=== PATIENT | male | born 1965 | race African-American/Black ===

== ENCOUNTER 2021-01-08 16:44 | Inpatient (IN) | payer OTHER, SELFPAY ==
[2021-01-08] VITALS (10 sets, daily range): BP systolic 117–178; BP diastolic 69–100; PULSE 56–67; RESP 15–24; TEMP 36.6–37.2; O2SAT 97–100; BMI 19.5
--- NOTE | ~2021-01-08 | XR_ITS ---
XR abdomen/kub 1V 01/09/2021 11:39 INDICATION: Severe abdominal pain TECHNIQUE: KUB COMPARISON: CT dated 01/08/2021 FINDINGS: Small bowel is mildly dilated. No free air is identified. There is residual contrast in the bladder. Lung bases are unremarkable. No acute osseous abnormality. No abnormal calculi are seen. The bones appear intact. IMPRESSION: 1: Mildly dilated small bowel which may represent ileus or partial obstruction. Reviewed, dictated and finalized at location A.
--- NOTE | ~2021-01-08 | XR_ITS ---
EXAMINATION: XR abdomen/kub 1V DATE: 01/10/2021 00:49 INDICATION: Small bowel obstruction. TECHNIQUE: A supine view of the abdomen on 2 radiographs was obtained. COMPARISON: CT abdomen and pelvis 01/08/2021, abdomen radiograph 09/14/2020 FINDINGS: There are multiple dilated loops of small bowel. The colon is decompressed. IMPRESSION: 1. Persistent small bowel obstruction. Reviewed, dictated and finalized at location A.
--- NOTE | ~2021-01-08 | XR_ITS ---
EXAMINATION: XR abdomen/kub 1V DATE: 01/11/2021 05:47 INDICATION: Small bowel obstruction. TECHNIQUE: A supine view of the abdomen on 2 radiographs was obtained. COMPARISON: Abdomen radiographs 01/10/2021 FINDINGS: The stomach is distended. There are multiple dilated loops of small bowel. There is oral co ntrast in stomach and small bowel. The colon is decompressed. IMPRESSION: 1. Persistent small bowel obstruction. Reviewed, dictated and finalized at location A.
--- NOTE | ~2021-01-08 | CT_ITS ---
EXAMINATION: CT abdomen pelvis w con DATE: 01/08/2021 20:42 INDICATION: Epigastric abdominal pain. TECHNIQUE: Computed tomography (CT) of the abdomen and pelvis was performed with 100 mL Omnipaque 350 intravenous contrast. Automated exposure control and iterative reconstruction technique were employe d. The dose-length product was 151.13 mGy-cm. COMPARISON: None. FINDINGS: The visualized portions of the lung bases are clear without pneumonia or pleural effusion. The heart size is normal. No pericardial effusion. The liver, gallbladder, spleen, pancreas, adrenal glands, and right kidney are normal. There are cysts in left kidney measuring up to 8 mm. There are m ultiple dilated loops of small bowel with transition point at the midline. The appendix is not visual ized. The colon is decompressed. There is an anastomosis in small bowel. There are no pathologically enlarged lymph nodes. There is a small volume of ascites. There is a subcutaneous radiopaque foreign body in the right buttock. There is moderate lumbar spondylosis. IMPRESSION: 1. Small bowel obstruction. 2. Small volume of ascites. Reviewed, dictated and finalized at location A.
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
[2021-01-08 18:31] LABS: Basophils Percent Auto 0.3 % (0.2-1.2); Hematocrit 46.5 % (42.0-52.0); Hemoglobin 16.1 g/dL (14.0-18.0); Immature Granulocyte Absolute 0.03 K/mm3 (0.00-0.031); Immature Granulocyte Percent A 0.4 % (0-0.5); Lymphocytes Absolute Auto 1.16 K/mm3 (0.9-3.2); Lymphocytes Percent Auto 16.5 % (18.3-44.2); Mean Corpuscular HGB Conc 34.6 g/dl (32-36); Mean Corpuscular Hemoglobin 35.1 pg (26-34); Mean Corpuscular Volume 101.3 fl (80-100); Mean Platelet Volume 8.1 fl (7.4-10.4); Monocytes Absolute Auto 0.5 K/mm3 (0.1-0.6); Monocytes Percent Auto 6.7 % (2.6-8.5); Neutrophils Absolute Auto 5.3 K/mm3 (1.3-6.7); Neutrophils Percent Auto 76.1 % (45.5-73.1); Platelet Count Result 426 k/mm3 (150-375); Red Blood Count 4.59 M/mm3 (4.6-6.20); Red Cell Distribution Width 14.1 % (11.5-14.5)
[2021-01-08 18:41] LABS: Alanine Aminotransferase 15 U/L (4-50); Albumin Level 4.3 g/dL (3.5-5.1); Alkaline Phosphatase 84 U/L (38-126); Anion Gap 11 mmol/L (8-16); Aspartate Amino Transferase 27 U/L (17-59); Bilirubin,Total 0.5 mg/dL (0.2-1.3); Blood Urea Nitrogen 7 mg/dL (9-20); Calcium 9.3 mg/dL (8.4-10.2); Carbon Dioxide 25 mmol/L (22-30); Chloride 101 mmol/L (98-107); Estimated CRCL calculation 91 ml/min; Estimated Glomerular Filt Rate > 60; Glucose 124 mg/dL (65-110); Lipase 31 U/L (23-300); Potassium 3.8 mmol/L (3.4-5.0); Sodium 137 mmol/L (137-145)
--- NOTE | 2021-01-08 19:55 | PC.NURSE ---
Jorge Diaz PA-C, notified of pt's complaints of abdominal pain.
--- NOTE | 2021-01-08 20:10 | PC.NURSE ---
Registration came to charge nurse to notify her that the pt was very rude to her and raising his voice at her. He also made multiple comments about it being a black and white thing, I waited out in that waiting room for over 4 hours. I called 911 and was brought in by an ambulance, that should indicate how sick I am . I should have been taken straight to a room. Pt informed that we have to prioritize based off of how critical/unstable a patient is, and what beds we have available. At that moment we did not have any available beds, and got him into a room as soon as we physically could. Pt continued to make remarks about it being a black vs white situation. Charge notified and pt was in room at the 3 hour jasmyne, and seen by a provider lokesh 20 minutes of being in a room.
[2021-01-08] MEDS: ONDANSETRON INJ 4 MG/2 ML VIAL IV PUSH (20:44)
[2021-01-08] MEDS: MORPHINE SULFATE (*CRX) 2 MG/ML INJ IV PUSH (20:44)
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
[2021-01-08] MEDS: HYDROmorphone HCL INJ (*CRX) 1 MG/ML SYR IV PUSH (22:19)
[2021-01-08] MEDS: SODIUM CHLORIDE 0.9% IV 1,000 ML 125 ML IV CONT (22:19)
--- NOTE | 2021-01-08 22:35 | PC.NURSE ---
Educated on the need for NG tube placement, pt states he has had this before and you ain't gonna do that to me.
[2021-01-08 22:43] LABS: Add Urine Microscopic? YES; Appearance Urine Clear (Clear); Bacteria Urine Trace /hpf; Bilirubin Urine Negative (Negative); Blood Urine Negative (Negative); Color Urine Yellow (Yellow); Glucose Urine UA Negative (Negative); Ketones Urine 1+ mg/dL (Negative); Leukocyte Esterase Ur Trace LEU/UL (Negative); Mucus Urine Heavy /lpf; Nitrate Urine Negative (Negative); Protein Urine 1+ mg/dL (Negative); Squamous Epithelial Cell Urine Rare /hpf (Few); Urobilinogen Urine Negative mg/dL (<2.0)
--- NOTE | 2021-01-08 23:48 | ADMGEN ---
This patient, Nick Hall, was admitted to Medical Room 341-01. Patient/family oriented to hospital policies and general routines including ID bracelet, bed and alarms, visiting hours, pain management, procedures, bathroom and other care routines, personal items, smoking policy, room service/diet, and visiting hours. Information on how to activate the Rapid Response Team has been discussed. Patient/Family are encouraged to report perceived risks to care and to ask questions if they do not understand what they are told or what they should do.
[2021-01-09] VITALS (7 sets, daily range): BP systolic 125–165; BP diastolic 81–97; PULSE 58–86; RESP 16–18; TEMP 36–36.6; O2SAT 96–100; BMI 19.5
[2021-01-09] MEDS: HYDROmorphone HCL INJ (*CRX) 1 MG/ML SYR IV PUSH ×6 (02:17→22:11)
[2021-01-09] MEDS: SODIUM CHLORIDE 0.9% IV 1,000 ML 125 ML IV CONT ×3 (06:34→20:15)
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
[2021-01-09 09:53] LABS: Hematocrit 44.7 % (42.0-52.0); Hemoglobin 15.5 g/dL (14.0-18.0); Mean Corpuscular HGB Conc 34.7 g/dl (32-36); Mean Corpuscular Hemoglobin 35.6 pg (26-34); Mean Corpuscular Volume 102.5 fl (80-100); Mean Platelet Volume 8.3 fl (7.4-10.4); Platelet Count Result 370 k/mm3 (150-375); Red Blood Count 4.36 M/mm3 (4.6-6.20); Red Cell Distribution Width 14.3 % (11.5-14.5)
[2021-01-09 10:06] LABS: Alanine Aminotransferase 12 U/L (4-50); Albumin Level 3.4 g/dL (3.5-5.1); Alkaline Phosphatase 62 U/L (38-126); Anion Gap 8 mmol/L (8-16); Aspartate Amino Transferase 22 U/L (17-59); Bilirubin,Total 0.5 mg/dL (0.2-1.3); Blood Urea Nitrogen 6 mg/dL (9-20); Calcium 8.5 mg/dL (8.4-10.2); Carbon Dioxide 22 mmol/L (22-30); Chloride 105 mmol/L (98-107); Estimated CRCL calculation 70 ml/min; Estimated Glomerular Filt Rate > 60; Glucose 108 mg/dL (65-110); Magnesium 2.2 mg/dL (1.6-2.3); Potassium 3.6 mmol/L (3.4-5.0); Sodium 135 mmol/L (137-145)
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
[2021-01-09] MEDS: ACETAMINOPHEN 500 MG TABLET 1000 MG PO (22:10)
[2021-01-09] MEDS: hydrALAZINE HCL 20 MG/ML VIAL 10 MG IV PUSH (23:13)
[2021-01-10] VITALS (7 sets, daily range): BP systolic 142–180; BP diastolic 89–100; PULSE 70–86; RESP 16–18; TEMP 36.4–36.6; O2SAT 97–100
--- NOTE | 2021-01-10 01:30 | PC.NURSE ---
Around 0030, this RN was called by the patient to come into the room urgently. Upon entering the room the patient was found holding his abdomen. After inquiring what was wrong, the patient stated, I can't do this anymore man, my belly is so tight. It wasn't like this before. Upon my assessment his abdomen felt firm and bowel sounds hypoactive. Patient educated on NG tube placements for small bowel obstructions and the benefits of having one in his situation which would relieve the pressure in his stomach. Patient also educated on slowing down on the water and ice chips as this could be a cause of his increasing abdominal tightness all of a sudden. During and after education, patient kept saying, Nah man, you don't understand. You're just messing with me, and insisting to see a doctor. Dr. Bright was notified of the patient's request and she ordered a STAT KUB and said she would see the patient after the test had resulted. Patient's midnight CIWA score was an 8 and he was noticeably agitated and restless. When going to scan his ID bracelet to administer Ativan, he angrily refused the medication until he spoke to the Collection Specialist. Collection Specialist Juliann notified and came to speak to the patient. After reiterating what I had previously told the patient, he finally calmed down a little and agreed to take the ativan only if Juliann gave it to him because, these youngins don't know what the hell they are talking about. Will continue to monitor.
[2021-01-10] MEDS: LORazepam INJ (*CRX) 2 MG/ML VIAL 1 MG IV PUSH ×3 (01:33→16:52)
[2021-01-10] MEDS: HYDROmorphone HCL INJ (*CRX) 1 MG/ML SYR IV PUSH ×7 (01:55→20:17)
[2021-01-10] MEDS: PROMETHAZINE HCL 25 MG/ML AMPUL 12.5 MG IV PUSH ×2 (04:19→09:01)
[2021-01-10] MEDS: SODIUM CHLORIDE 0.9% IV 1,000 ML 125 ML IV CONT ×2 (04:19→13:39)
[2021-01-10 06:14] LABS: Hematocrit 41.9 % (42.0-52.0); Hemoglobin 14.6 g/dL (14.0-18.0); Mean Corpuscular HGB Conc 34.8 g/dl (32-36); Mean Corpuscular Hemoglobin 34.8 pg (26-34); Mean Corpuscular Volume 99.8 fl (80-100); Mean Platelet Volume 8.2 fl (7.4-10.4); Platelet Count Result 403 k/mm3 (150-375); White Blood Count 7.7 K/mm3 (4.5-10.0)
[2021-01-10 06:28] LABS: Alanine Aminotransferase 11 U/L (4-50); Albumin Level 3.1 g/dL (3.5-5.1); Alkaline Phosphatase 55 U/L (38-126); Anion Gap 8 mmol/L (8-16); Aspartate Amino Transferase 22 U/L (17-59); Bilirubin,Total 0.3 mg/dL (0.2-1.3); Blood Urea Nitrogen 4 mg/dL (9-20); Calcium 8.3 mg/dL (8.4-10.2); Carbon Dioxide 22 mmol/L (22-30); Chloride 104 mmol/L (98-107); Estimated CRCL calculation 79 ml/min; Estimated Glomerular Filt Rate > 60; Glucose 95 mg/dL (65-110); Potassium 3.4 mmol/L (3.4-5.0); Sodium 134 mmol/L (137-145)
--- NOTE | 2021-01-10 11:19 | PM.PNGS ---
Progress Note: A&P Assessment and Plan (1) Small bowel obstruction: Code(s): K56.609 - Unspecified intestinal obstruction, unspecified as to partial versus complete obstruction Status: Acute Assessment and Plan: Abd x-ray this morning still suggests SBO. Will get Gastrografin SBS today to further assess the obstruction. Pt had worsening symptoms after taking in the oral contrast. Will make NPO, continue IV fluids, and await SBS results. Encouraged OOB, walk the halls. (2) ETOH abuse: Code(s): F10.10 - Alcohol abuse, uncomplicated Status: Acute Assessment and Plan: On CIWA scale, Ativan PRN ordered. Management per Hospitalist. Additional Plan I have discussed the plan of care with Dr. Estes. Subjective Subjective Date/Time Seen: 01/10/21 11:19 Patient reports: still having pain, no flatus, no bowel movement and nausea Interval history: 55 yo M who was admitted for SBO, refused NG tube on admission and was allowed clear liquids yesterday. Patient seen and examined today. Gastrografin SBS was ordered this morning prior to my exam. He has already been to radiology, had the oral contrast, and multiple images taken. He is drowsy when entering the room, and per the nurse he has recently received IV Dilaudid, Ativan, and Phenergan. Prior to this, he was alert and awake. The patient is able to respond to his name and open his eyes to answer questions and have a conversation with me. He reports generalized abdominal pain, bloating, and nausea after drinking the contrast. He reports some abdominal pain overnight, but much worse after the contrast. He denies any flatus overnight or this morning. Still no BM since prior to admission. No other complaints at this time. Review of Systems Review of Systems: All systems reviewed & are unremarkable except as noted in HPI and below Exam Const: General: comfortable, no acute distress and other (drowsy) Orientation/consciousness: patient oriented x3 Resp: Effort & Inspection: normal respiratory effort Auscultation: clear to auscultation bilaterally Cardio: Rate: regular rate Rhythm: regular rhythm GI: Inspection: distended and no visible herniation GI Palp: Yes Soft to palpation, Yes Tenderness to palpation present (GI) (diffusely tender throughout), No Guarding due to palpation present (GI) and No Rebound tenderness present Auscultation: normal bowel sounds and High-pitched bowel sounds present Neuro: General: moves all extremities and no focal motor deficits Extrem: General: no clubbing, cyanosis or edema Psych: Mental Status: mental status grossly normal Insight: Good insight present (Psych) Judgement: Fair judgement present (Psych) Objective Data Vital Signs Vital Signs: Vital Signs - 24 hr 01/09/21 14:00 01/09/21 21:48 01/09/21 23:10 Temperature 96.8 F L Pulse Rate 68 58 L Respiratory Rate 18 16 Blood Pressure 145/83 H 159/92 H 165/97 H Pulse Oximetry 100 100 01/10/21 00:09 01/10/21 06:23 Temperature 97.8 F Pulse Rate 71 Respiratory Rate 16 Blood Pressure 156/89 H 142/89 H Pulse Oximetry 97 Intake/Output Intake/Output: Intake & Output 01/07/21 01/08/21 01/09/21 01/10/21 23:59 23:59 23:59 23:59 Intake Total 50 3420 1200 Output Total 300 600 Balance 50 3120 600 Meds/Results Medications: Active Medications Generic Name Dose Route Start Last Admin Trade Name Freq PRN Reason Stop Dose Admin Acetaminophen 1,000 mg 01/09/21 08:56 01/09/21 22:10 Acetaminophen 500 Mg Tablet PO 1,000 mg Q6H PRN Administration Mild Pain (1-3) or Fever Hydromorphone HCl 1 mg 01/08/21 21:51 01/10/21 10:06 Hydromorphone Hcl Inj (*Crx) 1 Mg/Ml Syr IV PUSH 1 mg Q4H PRN Administration Pain Rated 7-10 Sodium Chloride 1,000 mls @ 125 mls/hr 01/08/21 21:55 01/10/21 04:19 Normal Saline Iv IV CONT 125 mls/hr .Q8H [place] Administration Lorazepam 1 mg 01/09/21 02:27 01/10/21 10:07 Lorazepam
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
[2021-01-10] MEDS: hydrALAZINE HCL 20 MG/ML VIAL 10 MG IV PUSH ×2 (14:33→20:17)
--- NOTE | 2021-01-10 16:44 | PC.NURSE ---
Attempted to place NG tube in patient. He would not allow me to advance it beyond his nasal passage. Pt warned of risks if he does not allow NG to be put in, including likely need for exploratory surgery tomorrow. MILES Swift updated. To try again if pt will allow.
[2021-01-10] MEDS: ONDANSETRON INJ 4 MG/2 ML VIAL IV PUSH (20:44)
[2021-01-11] MEDS: HYDROmorphone HCL INJ (*CRX) 1 MG/ML SYR IV PUSH ×8 (00:08→23:57)
[2021-01-11] MEDS: LORazepam INJ (*CRX) 2 MG/ML VIAL 1 MG IV PUSH ×2 (00:11→05:43)
[2021-01-11] MEDS: SODIUM CHLORIDE 0.9% IV 1,000 ML 125 ML IV CONT ×3 (02:11→20:23)
[2021-01-11 05:42] VITALS: BP 158/102; PULSE 100; RESP 17; TEMP 36.4; O2SAT 99
[2021-01-11 05:45] LABS: Hematocrit 43.3 % (42.0-52.0); Hemoglobin 15.4 g/dL (14.0-18.0); Mean Corpuscular HGB Conc 35.6 g/dl (32-36); Mean Corpuscular Hemoglobin 35.7 pg (26-34); Mean Corpuscular Volume 100.5 fl (80-100); Mean Platelet Volume 8.3 fl (7.4-10.4); Platelet Count Result 380 k/mm3 (150-375); Red Blood Count 4.31 M/mm3 (4.6-6.20); Red Cell Distribution Width 13.6 % (11.5-14.5)
[2021-01-11 06:00] LABS: Alanine Aminotransferase 12 U/L (4-50); Albumin Level 3.3 g/dL (3.5-5.1); Alkaline Phosphatase 64 U/L (38-126); Anion Gap 13 mmol/L (8-16); Aspartate Amino Transferase 23 U/L (17-59); Bilirubin,Total 0.6 mg/dL (0.2-1.3); Blood Urea Nitrogen 5 mg/dL (9-20); Carbon Dioxide 20 mmol/L (22-30); Chloride 101 mmol/L (98-107); Estimated CRCL calculation 91 ml/min; Estimated Glomerular Filt Rate > 60; Glucose 99 mg/dL (65-110); Magnesium 2.3 mg/dL (1.6-2.3); Potassium 3.6 mmol/L (3.4-5.0); Sodium 134 mmol/L (137-145)
[2021-01-11] MEDS: PANTOPRAZOLE 40 MG TABLET PO ×2 (09:41→20:23)
[2021-01-11] MEDS: hydrALAZINE HCL 20 MG/ML VIAL 10 MG IV PUSH ×2 (10:39→20:29)
--- NOTE | 2021-01-11 11:36 | PM.PNGS ---
Progress Note: A&P Assessment and Plan (1) Small bowel obstruction: Code(s): K56.609 - Unspecified intestinal obstruction, unspecified as to partial versus complete obstruction Status: Acute Assessment and Plan: images reviewed, still no bowel fxn, pt refusing NG tube, will plan for ex lap tomorrow if no resolution Subjective Subjective Date/Time Seen: 01/11/21 11:36 Pt feels ok, still no bowel fxn. Pt denies any abdominal pain, was somewhat nauseous overnight Review of Systems Review of Systems: All systems reviewed & are unremarkable except as noted in HPI and below Exam Const: General: cooperative, comfortable and no acute distress Orientation/consciousness: patient oriented x3 Resp: Effort & Inspection: normal respiratory effort Auscultation: clear to auscultation bilaterally Cardio: Rate: regular rate Rhythm: regular rhythm GI: Inspection: normal to inspection, distended and incision GI Palp: Yes Soft to palpation, No Tenderness to palpation present (GI), No Guarding due to palpation present (GI) and No Rigid due to palpation Objective Data Vital Signs Vital Signs: Vital Signs - 24 hr 01/10/21 14:20 01/10/21 14:23 01/10/21 15:40 Temperature 36.4 C Pulse Rate 70 Respiratory Rate 18 Blood Pressure 180/100 H 180/100 H 178/95 H Pulse Oximetry 01/10/21 19:23 01/10/21 21:10 01/11/21 05:42 Temperature 36.6 C 36.4 C Pulse Rate 86 100 Respiratory Rate 18 17 Blood Pressure 172/98 H 168/92 H 158/102 H Pulse Oximetry 100 99 Intake/Output Intake/Output: Intake & Output 01/08/21 01/09/21 01/10/21 01/11/21 23:59 23:59 23:59 23:59 Intake Total 50 3420 2200 1000 Output Total 300 975 150 Balance 50 3120 1225 850 Meds/Results Medications: Active Medications Generic Name Dose Route Start Last Admin Trade Name Freq PRN Reason Stop Dose Admin Acetaminophen 1,000 mg 01/09/21 08:56 01/09/21 22:10 Acetaminophen 500 Mg Tablet PO 1,000 mg Q6H PRN Administration Mild Pain (1-3) or Fever Hydralazine HCl 10 mg 01/10/21 14:21 01/11/21 10:39 Hydralazine Hcl 20 Mg/Ml Vial IV PUSH 10 mg Q8H PRN Administration Systolic BP > 160 Hydromorphone HCl 1 mg 01/10/21 13:33 01/11/21 09:50 Hydromorphone Hcl Inj (*Crx) 1 Mg/Ml Syr IV PUSH 1 mg Q2H PRN Administration Pain Rated 7-10 Sodium Chloride 1,000 mls @ 125 mls/hr 01/08/21 21:55 01/11/21 02:11 Normal Saline Iv IV CONT 125 mls/hr .Q8H [facility] Administration Lorazepam 1 mg 01/09/21 02:27 01/11/21 05:43 Lorazepam Inj (*Crx) 2 Mg/Ml Vial IV PUSH 1 mg Q6H PRN Administration Restlessness, Agitation, Tremors Ondansetron HCl 4 mg 01/08/21 21:51 01/10/21 20:44 Ondansetron Inj 4 Mg/2 Ml Vial IV PUSH 4 mg Q4H PRN Administration Nausea Pantoprazole Sodium 40 mg 01/09/21 09:40 01/11/21 09:41 Pantoprazole 40 Mg Tablet PO 40 mg Q12HR [facility] Administration Radiology Results: ITS Impressions Abdomen/Pelvis CT 01/09/21 07:44 IMPRESSION: 1. Small bowel obstruction. 2. Small volume of ascites. Small Bowel X-Ray 01/10/21 15:03 IMPRESSION: 1: Small bowel obstruction. Abdomen X-Ray 01/11/21 06:37 IMPRESSION: 1. Persistent small bowel obstruction. Labs Labs: Laboratory Results - last 24 hr 01/11/21 01/11/21 05:17 05:17 WBC 8.0 RBC 4.31 L Hgb 15.4 Hct 43.3 MCV 100.5 H MCH 35.7 H MCHC 35.6 RDW 13.6 Plt Count 380 H MPV 8.3 Sodium 134 L Potassium 3.6 Chloride 101 Carbon Dioxide 20 L Anion Gap 13 BUN 5 L Creatinine 0.60 L Estim Creat Clear Calc 91 Estimated GFR > 60 Glucose 99 Calcium 9.0 Magnesium 2.3 Total Bilirubin 0.6 AST 23 ALT 12 Alkaline Phosphatase 64 Total Protein 7.0 Albumin 3.3 L Quality VTE Prophylaxis VTE prophylaxis: mechanical ordered
--- NOTE | 2021-01-11 12:16 | WPDANESEPPF ---
Anes - Initial Pre Proc Eval Procedure: Operation Date: 01/12/21 11:00 Proposed Procedures p Exploratory Laparotomy, Possible Bowel Resection - Regine Estes MD Date/Time: 01/11/21 12:16 Surgeon: Regine Estes MD Pre Op Diagnosis: Small Bowel Obstruction Patient Data Age: 55 Gender: M Height: 1.65 m Weight: 53.3 kg Last Vital Signs Temp 36.4 C 01/11/21 05:42 Pulse 100 01/11/21 05:42 Resp 17 01/11/21 05:42 BP 158/102 H 01/11/21 05:42 Pulse Ox 99 01/11/21 05:42 Allergies Allergy/AdvReac Type Severity Reaction Status Date / Time No Known Allergies Allergy Verified 01/08/21 19:55 Home Medications Medication Instructions Recorded Confirmed Type pantoprazole 40 mg PO BID 01/08/21 01/08/21 History Laboratory Tests 01/11/21 01/11/21 05:17 05:17 WBC 8.0 K/mm3 K/mm3 (4.5-10.0) RBC 4.31 M/mm3 L M/mm3 (4.6-6.20) Hgb 15.4 g/dL g/dL (14.0-18.0) Hct 43.3 % % (42.0-52.0) MCV 100.5 fl H fl (80-100) MCH 35.7 pg H pg (26-34) MCHC 35.6 g/dl g/dl (32-36) RDW 13.6 % % (11.5-14.5) Plt Count 380 k/mm3 H k/mm3 (150-375) MPV 8.3 fl fl (7.4-10.4) Sodium 134 mmol/L L mmol/L (137-145) Potassium 3.6 mmol/L mmol/L (3.4-5.0) Chloride 101 mmol/L mmol/L (98-107) Carbon Dioxide 20 mmol/L L mmol/L (22-30) Anion Gap 13 mmol/L mmol/L (8-16) BUN 5 mg/dL L mg/dL (9-20) Creatinine 0.60 mg/dL L mg/dL (0.7-1.3) Estim Creat Clear Calc 91 ml/min ml/min Estimated GFR > 60 (59 - ) Glucose 99 mg/dL mg/dL (65-110) Calcium 9.0 mg/dL mg/dL (8.4-10.2) Magnesium 2.3 mg/dL mg/dL (1.6-2.3) Total Bilirubin 0.6 mg/dL mg/dL (0.2-1.3) AST 23 U/L U/L (17-59) ALT 12 U/L U/L (4-50) Alkaline Phosphatase 64 U/L U/L (38-126) Total Protein 7.0 g/dL g/dL (6.3-8.2) Albumin 3.3 g/dL L g/dL (3.5-5.1) Patient hx anesthesia problems: none Family hx anesthesia problems: none PMFSH Past Medical History Medical History ETOH abuse Small bowel obstruction Smoker Social History Social History Smoking packs per day: 1 Smoking cigarettes per day: 20.0 Years smoked: 30 Smoking pack-years: 30.00 Smoking status: Current every day smoker Tobacco type: cigarettes Alcohol intake: current Drinks per week: 20 Substance use type: marijuana Spiritual care concerns: No Anes - Eval Final PreProcedure Day of Procedure 01/11/21 12:16 Patient weight: normal Heart: regular rate and rhythm Lungs: clear to auscultation and normal air movement Airway: Mallampati scale class II Neurological: alert and oriented Last oral intake: >/= 8 hours ASA classification: III Emergent: no Anesthetic plan: proceed Anesthesia type and monitoring: general ETT Informed Consent: The patient's anesthetic plan and its attendant risks and benefits were discussed with the patient/family/POA. Questions were solicited and answers provided to the satisfaction of the patient/family/POA.
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
[2021-01-11] MEDS: ONDANSETRON INJ 4 MG/2 ML VIAL IV PUSH ×2 (13:15→17:26)
[2021-01-11 14:38] VITALS: BP 163/95; PULSE 106; RESP 20; TEMP 36.9; O2SAT 97
--- NOTE | 2021-01-11 16:22 | PC.NURSE ---
Patient gave permission to speak to his aunt Sarah Aranda about his condition.
[2021-01-11 20:29] VITALS: BP 171/104; PULSE 107; RESP 14; TEMP 36.9; O2SAT 96
[2021-01-11 20:39] VITALS: BP 171/104
[2021-01-11 23:57] VITALS: BP 155/107
[2021-01-12] VITALS (14 sets, daily range): BP systolic 146–187; BP diastolic 90–117; PULSE 78–150; RESP 15–25; TEMP 36.4–37.1; O2SAT 95–100
[2021-01-12] MEDS: ONDANSETRON INJ 4 MG/2 ML VIAL IV PUSH ×2 (00:03→04:42)
[2021-01-12] MEDS: HYDROmorphone HCL INJ (*CRX) 1 MG/ML SYR IV PUSH ×6 (02:36→23:02)
[2021-01-12] MEDS: SODIUM CHLORIDE 0.9% IV 1,000 ML 125 ML IV CONT ×2 (04:43→17:35)
[2021-01-12] MEDS: hydrALAZINE HCL 20 MG/ML VIAL 10 MG IV PUSH (04:46)
[2021-01-12 07:02] LABS: Hematocrit 42.2 % (42.0-52.0); Hemoglobin 14.9 g/dL (14.0-18.0); Mean Corpuscular HGB Conc 35.3 g/dl (32-36); Mean Corpuscular Hemoglobin 35.2 pg (26-34); Mean Corpuscular Volume 99.8 fl (80-100); Mean Platelet Volume 8.6 fl (7.4-10.4); Platelet Count Result 367 k/mm3 (150-375); Red Blood Count 4.23 M/mm3 (4.6-6.20); Red Cell Distribution Width 14.4 % (11.5-14.5); White Blood Count 10.4 K/mm3 (4.5-10.0)
[2021-01-12 07:18] LABS: Alanine Aminotransferase 10 U/L (4-50); Albumin Level 3.9 g/dL (3.5-5.1); Alkaline Phosphatase 65 U/L (38-126); Anion Gap 14 mmol/L (8-16); Aspartate Amino Transferase 28 U/L (17-59); Bilirubin,Total 0.5 mg/dL (0.2-1.3); Blood Urea Nitrogen 8 mg/dL (9-20); Calcium 9.2 mg/dL (8.4-10.2); Carbon Dioxide 19 mmol/L (22-30); Chloride 103 mmol/L (98-107); Estimated CRCL calculation 70 ml/min; Estimated Glomerular Filt Rate > 60; Glucose 88 mg/dL (65-110); Magnesium 2.2 mg/dL (1.6-2.3); Potassium 3.7 mmol/L (3.4-5.0); Sodium 136 mmol/L (137-145)
--- NOTE | 2021-01-12 09:45 | PC.NURSE ---
Patient taken to the or.
[2021-01-12] MEDS: LACTATED RINGERS 1,000 ML 30 ML IV CONT ×2 (10:06→12:15)
--- NOTE | 2021-01-12 10:07 | SUR.PREOP ---
DR KAUFMAN AT BEDSIDE SPEAKING TO PT. PT C/O PAIN. ASKING FOR PAIN MEDICINE. PT C/O UNABLE TO TAKE A DEEP BREATH DUE TO PAIN. DR KAUFMAN ORDERING FENTANYL FOR PREOP
--- NOTE | 2021-01-12 10:20 | WPDANESPNB ---
Anes - Peripheral Nerve Block Date/Time: 01/12/21 10:20 I have discussed with the patient/family/POA the placement of a peripheral nerve block for post-operative pain management, including associated risks, benefits, complications, and side effects. Alternative methods of post-operative analgesia were detailed. Questions were solicited and answers provided to the satisfaction of the patient/family/POA. Time-Out: A pre-procedural Time-Out was completed immediately before starting the procedure and confirmed: Patient Identification, Site, Procedure, Patient Position and the Availability of Requisite Equipment. Clinical Indications: Acute post-operative pain management requested by the operative surgeon. Nerve Block Insertion Note Anes-nerve block: other (b/l t7 diana block) Patient position: other (sitting) Skin prep: chlorhexidine Needle: 22 gauge, stimulating, insulated echogenic needle. Needle length: 80 mm Technique: ultrasound (in plane) Technique comment: in plane Injectate: bupivacaine 0.25% with epi 5 mcg/ml (40cc - 20cc/side) Observations: tolerated well Complications: none Procedure start time:: 111 Procedure end time:: 1114
[2021-01-12] MEDS: fentaNYL CITRATE INJ (*CRX) 100 MCG/2 ML VIAL 50 MCG IV PUSH (10:21)
--- NOTE | 2021-01-12 10:40 | SUR.PREOP ---
1020; late note, PULSE OXIMETER PLACED ON PT CONTINUOUSLY DUE TO FENTANYL GIVEN IV. 1040; PT RESTING QUIETLY. RESP EVEN UNLABORED. SAO2 98-100% ON ROOM AIR. CALL LIGHT IN REACH
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
--- NOTE | 2021-01-12 10:45 | SUR.PREOP ---
CALLED DR DIAZ'S OFFICE, REGARDING ANTIBX TRIMMER HAND TO OR
--- NOTE | 2021-01-12 10:55 | WPDHPUPDATE1 ---
History and Physical Update Update Date/Time: 01/12/21 10:55 History and Physical has been reviewed, including an updated exam of the patient. There are NO changes in the patient's condition. Risks, benefits, and alternatives have been discussed and questions answered. Patient agrees to proceed with procedure.
[2021-01-12] MEDS: ceFAZolin 2 GM/D5W 50 ML 2 GM/50 ML BAG IVPB (11:22)
--- NOTE | 2021-01-12 12:20 | W.PM.PROC2 ---
Procedure Note - Detailed Date of Procedure 01/12/21 Pre-op Diagnosis Small Bowel Obstruction Post-op Diagnosis same Procedure Performed exploratory laparotomy with lysis of adhesions of approximately 15 minutes Surgeon Regine Estes MD Anesthesia general and spinal Indications 55-year-old male presenting with recurrent small-bowel obstruction, no improvement with conservative management Findings adhesive band in right lower quadrant near mid ileum causing complete bowel obstruction Description of Procedure The patient was taken to the operating and placed in the supine position. After adequate induction of general anesthesia, the patient was prepped and draped in the normal sterile fashion. A time-out was then done to verify the patient's identity, as well as procedure being performed. I began by making a midline incision just to the right of the umbilicus. This incision was taken down to the peritoneal cavity. Upon entering the peritoneum, there was noted to be a moderate amount of ascites. I was then able to note very dilated small intestine. There were some adhesions to the anterior abdominal wall that were taken down with the Bovie cautery. I then began to run the small intestine. Small intestine was noted to be dilated from the ligament of Treitz to an area in the right lower quadrant at the level of the mid ileum. There was noted to be a dense adhesion in this area and it was noted that the distal small intestine was completely decompressed. I then did examine the colon which was noted to be decompressed and unremarkable. At this point, I took down this adhesive band in the mid ileum. Upon releasing this band, I was able to extracorporealyze this entire area. Examination of this area was unremarkable and the bowel was noted to be viable. Fluid was noted to freely flow distally at this point. I then ran the entirety of the small bowel once again and noted it to be unremarkable. I then confirmed placement of the NG tube in the stomach. Then copiously washed out the abdomen with normal saline. The fascia was then closed with looped PDS suture. Skin was closed with skin milena. The patient tolerated the procedure well and was extubated in the operating room postop. He will be sent to the recovery room in stable condition. Estimated Blood Loss 5 Urine Output 250 Drains No Packing No Pathology none sent Complications No immediate complications Condition stable Disposition PACU
--- NOTE | 2021-01-12 13:03 | SUR.PHASEI ---
1302-UPDATE GIVEN TO DR. KAUFMAN WITH VS REPORTED, OKAY FOR PT TO RETURN TO FLOOR AT THIS TIME.
--- NOTE | 2021-01-12 13:10 | PCNFU ---
Nutrition Follow-Up Complete: Altered GI function as related to SBO as evidenced by Clear liquids Goal: Adequate Intake of at least 75% of meals/supplements Patient has limited progressing towards goal. We will continue current goal. Pt current nutrition is NPO x 4 days. Last recorded weight is 53.3 kg, no new weight to report. Bowel Motility:No BMI reported. Labs Reviewed:BUN 8,Na 136 Meds Noted:Zofran,Dilaudid,LR, NS Additional Notes: Patient having exploratory lap today. NPO x 4 days. If patient remains NPO greater than 5 days would recommend starting IV nutrition. Skin: WNL. Monitoring: RD will monitor every 3 days.
[2021-01-12] MEDS: ENALAPRILAT 1.25 MG/ML VIAL IV PUSH (14:12)
[2021-01-12] MEDS: PANTOPRAZOLE SODIUM IV 40 MG VIAL IV PUSH (20:37)
[2021-01-13] VITALS (11 sets, daily range): BP systolic 141–173; BP diastolic 80–109; PULSE 79–96; RESP 12–18; TEMP 36.7–37.8; O2SAT 93–97
[2021-01-13] MEDS: LORazepam INJ (*CRX) 2 MG/ML VIAL 1 MG IV PUSH (00:57)
[2021-01-13] MEDS: ENALAPRILAT 1.25 MG/ML VIAL IV PUSH ×2 (00:58→18:44)
--- NOTE | 2021-01-13 01:10 | PC.NURSE ---
pt express concerns of ng placement. he states that it feels like there are two of them. I can feel it when I swallow. The oropharynx was visualized, with light, to have no curling or displacement of tubing. GI fluid noted in extent of tubing. NG remains taped off in original location to the nose. Patient reassured of proper placement. Will continue to monitor.
[2021-01-13] MEDS: SODIUM CHLORIDE 0.9% IV 1,000 ML 125 ML IV CONT (02:30)
[2021-01-13 05:59] LABS: Hemoglobin 13.3 g/dL (14.0-18.0); Mean Corpuscular Hemoglobin 36.2 pg (26-34); Mean Corpuscular Volume 103.5 fl (80-100); Mean Platelet Volume 8.8 fl (7.4-10.4); Platelet Count Result 249 k/mm3 (150-375); Red Blood Count 3.67 M/mm3 (4.6-6.20); Red Cell Distribution Width 14.4 % (11.5-14.5)
[2021-01-13 06:16] LABS: Alanine Aminotransferase 7 U/L (4-50); Alkaline Phosphatase 44 U/L (38-126); Anion Gap 9 mmol/L (8-16); Aspartate Amino Transferase 26 U/L (17-59); Bilirubin,Total 0.5 mg/dL (0.2-1.3); Blood Urea Nitrogen 8 mg/dL (9-20); Calcium 8.4 mg/dL (8.4-10.2); Carbon Dioxide 21 mmol/L (22-30); Chloride 104 mmol/L (98-107); Estimated CRCL calculation 79 ml/min; Estimated Glomerular Filt Rate > 60; Glucose 83 mg/dL (65-110); Magnesium 2.3 mg/dL (1.6-2.3); Potassium 3.8 mmol/L (3.4-5.0); Sodium 134 mmol/L (137-145)
[2021-01-13] MEDS: HYDROmorphone HCL INJ (*CRX) 1 MG/ML SYR IV PUSH ×5 (08:50→21:06)
[2021-01-13] MEDS: PANTOPRAZOLE SODIUM IV 40 MG VIAL IV PUSH ×2 (08:50→21:06)
--- NOTE | 2021-01-13 12:09 | PCNFU ---
Nutrition Follow-Up Complete: Altered GI function as related to SBO as evidenced by Clear liquids Goal: Adequate Intake of at least 75% of meals/supplements Patient has limited progress towards goal. We will continue current goal. Pt current nutrition is NPO. Last recorded weight is 53.3 kg, no new weight to report. Bowel Motility:No BM to reported-distended, hypoactive bowel sounds. Labs Reviewed:BUN 8,Na 134,Alb 3.0,Hct 38.0,Hgb 13.3 Meds Noted:Ativan,Protonix, Dilaudid,Ofirmev. Additional Notes: Nutrition follow up. Patient remains NPO x 5 days. NGT to suction. Patient had exp lap 01/12. Increased nutritional risk. Recommend starting Clinimix 4.25/5 at 80 ml/hr and 250 ml of 20% Lipid Emulsion which will provide patient with 1153 kcals and 82 gms protein. Monitoring: RD will monitor every 3 days.
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
[2021-01-13] MEDS: ENOXAPARIN 40 MG/0.4 ML SYRINGE SUB-Q (13:18)
--- NOTE | 2021-01-13 13:46 | WPDANESPN ---
Anes - Prog Note Post-Op Date/Time: 01/13/21 13:46 Cardiovascular status: normal Respiratory status: normal Airway patency: baseline Mental status: baseline Post-Op hydration status: normal Vital Signs: Last Vital Signs Temp 36.9 C 01/13/21 13:03 Pulse 79 01/13/21 13:03 Resp 16 01/13/21 13:03 BP 162/94 H 01/13/21 13:03 Pulse Ox 95 01/13/21 13:03 Pain Score (VAS): no complaints I/O: Intake & Output 01/12/21 01/13/21 01/13/21 23:59 07:59 15:59 Intake Total 100 1350 Output Total 450 300 Balance -350 1050 Laboratory Tests 01/13/21 05:19 01/13/21 05:19 01/13/21 01/13/21 05:19 05:19 WBC 6.0 RBC 3.67 L Hgb 13.3 L Hct 38.0 L MCV 103.5 H MCH 36.2 H MCHC 35.0 RDW 14.4 Plt Count 249 MPV 8.8 Sodium 134 L Potassium 3.8 Chloride 104 Carbon Dioxide 21 L Anion Gap 9 BUN 8 L Creatinine 0.70 Estim Creat Clear Calc 79 Estimated GFR > 60 Glucose 83 Calcium 8.4 Magnesium 2.3 Total Bilirubin 0.5 AST 26 ALT 7 Alkaline Phosphatase 44 Total Protein 6.0 L Albumin 3.0 L Post-procedural complaints: none Patient Feedback: Patient satisfied with anesthetic care. Other Findings: NG to SX
[2021-01-13] MEDS: KCL 40 MEQ/D5/0.9% SOD CHL 1,000 ML 80 ML IV CONT (16:18)
[2021-01-13] MEDS: BENZOCAINE/MENTHOL (*BKC) 18 EA LOZENGE 1 LOZENGE PO (16:24)
[2021-01-14] VITALS (8 sets, daily range): BP systolic 150–180; BP diastolic 88–110; PULSE 76–95; RESP 14–16; TEMP 36.6–37.1; O2SAT 94–99
[2021-01-14] MEDS: BENZOCAINE/MENTHOL (*BKC) 18 EA LOZENGE 1 LOZENGE PO ×3 (01:34→17:41)
[2021-01-14] MEDS: HYDROmorphone HCL INJ (*CRX) 1 MG/ML SYR IV PUSH ×5 (03:07→20:27)
[2021-01-14] MEDS: KCL 40 MEQ/D5/0.9% SOD CHL 1,000 ML 80 ML IV CONT (05:36)
[2021-01-14 06:01] LABS: Hematocrit 35.7 % (42.0-52.0); Hemoglobin 12.9 g/dL (14.0-18.0); Mean Corpuscular HGB Conc 36.1 g/dl (32-36); Mean Corpuscular Hemoglobin 35.4 pg (26-34); Mean Corpuscular Volume 98.1 fl (80-100); Mean Platelet Volume 8.8 fl (7.4-10.4); Platelet Count Result 283 k/mm3 (150-375); Red Blood Count 3.64 M/mm3 (4.6-6.20); Red Cell Distribution Width 13.5 % (11.5-14.5); White Blood Count 6.5 K/mm3 (4.5-10.0)
[2021-01-14 06:12] LABS: Alanine Aminotransferase 9 U/L (4-50); Albumin Level 2.9 g/dL (3.5-5.1); Alkaline Phosphatase 47 U/L (38-126); Anion Gap 6 mmol/L (8-16); Aspartate Amino Transferase 23 U/L (17-59); Bilirubin,Total 0.4 mg/dL (0.2-1.3); Blood Urea Nitrogen 9 mg/dL (9-20); Calcium 8.3 mg/dL (8.4-10.2); Carbon Dioxide 24 mmol/L (22-30); Chloride 105 mmol/L (98-107); Estimated CRCL calculation 79 ml/min; Estimated Glomerular Filt Rate > 60; Glucose 98 mg/dL (65-110); Potassium 3.5 mmol/L (3.4-5.0); Sodium 135 mmol/L (137-145)
[2021-01-14] MEDS: ONDANSETRON INJ 4 MG/2 ML VIAL IV PUSH (07:49)
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
[2021-01-14] MEDS: ENOXAPARIN 40 MG/0.4 ML SYRINGE SUB-Q (09:59)
[2021-01-14] MEDS: PANTOPRAZOLE SODIUM IV 40 MG VIAL IV PUSH ×2 (09:59→20:26)
[2021-01-14] MEDS: ENALAPRILAT 1.25 MG/ML VIAL IV PUSH (12:41)
--- NOTE | 2021-01-14 13:47 | PM.PNGS ---
Progress Note: A&P Assessment and Plan (1) Small bowel obstruction: Code(s): K56.609 - Unspecified intestinal obstruction, unspecified as to partial versus complete obstruction Status: Acute Assessment and Plan: expected postoperative ileus. Await return of bowel function. Continue NG tube, NPO, IV fluids. Continue to monitor labs daily as well as clinical exam. Doing well. Explained to patient it could be several days before NG tube can be removed and oral intake resumed. (2) Smoker: Code(s): F17.200 - Nicotine dependence, unspecified, uncomplicated Status: Chronic Assessment and Plan: Increases postoperative infection risks. Subjective Subjective Date/Time Seen: 01/14/21 13:47 Post Op day: 2 Patient reports: no new complaints, feels better, pain is less, no flatus, no bowel movement and afebrile Review of Systems Review of Systems: All systems reviewed & are unremarkable except as noted in HPI and below Constitutional: Constitutional: Denies headache(s) Cardiovascular: Cardiovascular: Denies chest pain and Denies dyspnea Respiratory: Respiratory: Denies cough and Denies dyspnea Gastrointestinal: Gastrointestinal: Reports as per HPI, Reports abdominal pain ( Mild), Denies heartburn, Denies nausea and Denies vomiting Neurologic: Denies confusion and Denies headache(s) Exam Const: General: comfortable and no acute distress; No confusion Orientation/consciousness: patient oriented x3 and No confusion GI: Inspection: non-distended, incision ( dry and healing well) and scaphoid GI Palp: Yes Soft to palpation, Yes Tenderness to palpation present (GI) ( slight, appropriate incisional tenderness), No Guarding due to palpation present (GI), No Palpable mass present and No Rebound tenderness present Auscultation: absent bowel sounds Neuro: General: patient oriented x3, no focal motor deficits and No confusion Extrem: General: no calf tenderness and no edema Psych: Affect: normal affect Insight: Good insight present (Psych) Judgement: Good judgement present (Psych) Objective Data Vital Signs Vital Signs: Vital Signs - 24 hr 01/13/21 14:16 01/13/21 14:54 01/13/21 16:00 Temperature 37.8 C H 37.3 C Pulse Rate 82 Pulse Rate [Left Brachial] 90 Respiratory Rate 16 Blood Pressure 173/103 H Pulse Oximetry 95 01/13/21 18:41 01/13/21 20:00 01/13/21 21:06 Temperature 36.7 C Pulse Rate 89 Pulse Rate [Left Brachial] 90 Respiratory Rate 12 Blood Pressure 172/96 H 159/96 H Pulse Oximetry 94 01/14/21 00:05 01/14/21 00:17 01/14/21 04:27 Temperature 36.6 C 36.6 C Pulse Rate 91 91 Pulse Rate [Left Brachial] 86 Respiratory Rate 14 14 Blood Pressure 160/91 H 160/91 H Pulse Oximetry 95 95 01/14/21 05:59 01/14/21 12:42 Temperature 36.8 C Pulse Rate 95 82 Pulse Rate [Left Brachial] Respiratory Rate 14 Blood Pressure 162/88 H 180/110 H Pulse Oximetry 95 Intake/Output Intake/Output: Intake & Output 01/11/21 01/12/21 01/13/21 01/14/21 23:59 23:59 23:59 23:59 Intake Total 3000 2300 1350 1000 Output Total 600 1170 1350 400 Balance 2400 1130 0 600 Meds/Results Medications: Active Medications Generic Name Dose Route Start Last Admin Trade Name Freq PRN Reason Stop Dose Admin Benzocaine 1 lozenge 01/13/21 11:52 01/14/21 07:53 Benzocaine/Menthol (*Bkc) 18 Ea Lozenge PO 1 lozenge PRN PRN Administration Sore Throat Enalaprilat 1.25 mg 01/12/21 12:00 01/14/21 12:41 Enalaprilat 1.25 Mg/Ml Vial IV PUSH 1.25 mg Q6HR [facility] Administration Enoxaparin Sodium 40 mg 01/14/21 09:00 01/14/21 09:59 Enoxaparin 40 Mg/0.4 Ml Syringe SUB-Q 40 mg DAILY [facility] Administration Hydralazine HCl 10 mg 01/10/21 14:21 01/11/21 20:29 Hydralazine Hcl 20 Mg/Ml Vial IV PUSH 10 mg Q8H PRN Administration Systolic BP > 160 Hydromorphone HCl 1 mg 01/10/21 13:33 01/14/21 12:39 Hydromorphone Hcl I
[2021-01-14] MEDS: KCL 40 MEQ/D5/0.9% SOD CHL 1,000 ML 125 ML IV CONT (20:33)
[2021-01-15] VITALS (11 sets, daily range): BP systolic 146–181; BP diastolic 80–99; PULSE 70–87; RESP 16–20; TEMP 35.6–37.3; O2SAT 96–99
[2021-01-15] MEDS: HYDROmorphone HCL INJ (*CRX) 1 MG/ML SYR IV PUSH ×2 (01:22→09:33)
[2021-01-15] MEDS: BENZOCAINE/MENTHOL (*BKC) 18 EA LOZENGE 1 LOZENGE PO (01:23)
[2021-01-15 05:57] LABS: Hematocrit 34.9 % (42.0-52.0); Hemoglobin 12.6 g/dL (14.0-18.0); Mean Corpuscular HGB Conc 36.1 g/dl (32-36); Mean Corpuscular Hemoglobin 35.1 pg (26-34); Mean Corpuscular Volume 97.2 fl (80-100); Mean Platelet Volume 8.8 fl (7.4-10.4); Platelet Count Result 265 k/mm3 (150-375); Red Blood Count 3.59 M/mm3 (4.6-6.20); Red Cell Distribution Width 13.3 % (11.5-14.5); White Blood Count 4.5 K/mm3 (4.5-10.0)
[2021-01-15 06:13] LABS: Alanine Aminotransferase 8 U/L (4-50); Albumin Level 2.7 g/dL (3.5-5.1); Alkaline Phosphatase 48 U/L (38-126); Anion Gap 5 mmol/L (8-16); Aspartate Amino Transferase 22 U/L (17-59); Bilirubin,Total 0.2 mg/dL (0.2-1.3); Blood Urea Nitrogen 5 mg/dL (9-20); Calcium 8.5 mg/dL (8.4-10.2); Carbon Dioxide 25 mmol/L (22-30); Chloride 106 mmol/L (98-107); Estimated CRCL calculation 91 ml/min; Estimated Glomerular Filt Rate > 60; Glucose 111 mg/dL (65-110); Potassium 3.8 mmol/L (3.4-5.0); Sodium 136 mmol/L (137-145)
[2021-01-15] MEDS: ENOXAPARIN 40 MG/0.4 ML SYRINGE SUB-Q (08:21)
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
--- NOTE | 2021-01-15 11:12 | PM.PNGS ---
Progress Note: A&P Assessment and Plan (1) Small bowel obstruction: Code(s): K56.609 - Unspecified intestinal obstruction, unspecified as to partial versus complete obstruction Status: Acute Assessment and Plan: Bowel function returning. Will DC NG tube and Fox catheter. Start full liquids. Increase ambulation. Discussed with hospitalist. Patient is doing well. Subjective Subjective Date/Time Seen: 01/15/21 11:12 Post Op day: 3 Patient reports: feels better, pain is less, flatus, bowel movement and afebrile Review of Systems Review of Systems: All systems reviewed & are unremarkable except as noted in HPI and below Constitutional: Constitutional: Denies headache(s) Respiratory: Respiratory: Denies cough and Denies dyspnea Neurologic: Denies confusion and Denies headache(s) Exam Const: General: comfortable and no acute distress; No confusion Orientation/consciousness: patient oriented x3 and No confusion GI: Inspection: non-distended, incision (Incision dry, intact, healing. No erythema) and scaphoid GI Palp: Yes Soft to palpation, Yes Tenderness to palpation present (GI) (Minimal tenderness), No Guarding due to palpation present (GI) and No Rebound tenderness present Auscultation: normal bowel sounds Neuro: General: patient oriented x3, no focal motor deficits and No confusion Extrem: General: no calf tenderness and no edema Psych: Affect: normal affect Insight: Good insight present (Psych) Judgement: Good judgement present (Psych) Objective Data Vital Signs Vital Signs: Vital Signs - 24 hr 01/14/21 12:42 01/14/21 14:00 01/14/21 20:00 Temperature 37.1 C Pulse Rate 82 80 Pulse Rate [Left Brachial] 78 Respiratory Rate Blood Pressure 180/110 H 156/89 H Pulse Oximetry 99 01/14/21 20:39 01/15/21 00:00 01/15/21 00:38 Temperature 36.8 C 36.6 C Pulse Rate 76 73 Pulse Rate [Left Brachial] 74 Respiratory Rate 16 16 Blood Pressure 150/90 H 160/87 H Pulse Oximetry 94 96 01/15/21 04:22 01/15/21 06:00 01/15/21 08:00 Temperature 36.4 C Pulse Rate 76 Pulse Rate [Left Brachial] 72 72 Respiratory Rate 18 Blood Pressure 146/90 H Pulse Oximetry 97 Intake/Output Intake/Output: Intake & Output 01/12/21 01/13/21 01/14/21 01/15/21 23:59 23:59 23:59 23:59 Intake Total 2300 1350 2000 Output Total 1170 1350 900 800 Balance 1130 0 1100 -800 Meds/Results Medications: Active Medications Generic Name Dose Route Start Last Admin Trade Name Freq PRN Reason Stop Dose Admin Benzocaine 1 lozenge 01/13/21 11:52 01/15/21 01:23 Benzocaine/Menthol (*Bkc) 18 Ea Lozenge PO 1 lozenge PRN PRN Administration Sore Throat Enalaprilat 1.25 mg 01/12/21 12:00 01/15/21 08:24 Enalaprilat 1.25 Mg/Ml Vial IV PUSH Not Given Q6HR [facility] Enoxaparin Sodium 40 mg 01/14/21 09:00 01/15/21 08:21 Enoxaparin 40 Mg/0.4 Ml Syringe SUB-Q 40 mg DAILY [facility] Administration Hydralazine HCl 10 mg 01/10/21 14:21 01/11/21 20:29 Hydralazine Hcl 20 Mg/Ml Vial IV PUSH 10 mg Q8H PRN Administration Systolic BP > 160 Potassium Chloride/Dextrose/Sod Cl 1,000 mls @ 80 mls/hr 01/13/21 13:00 01/15/21 08:24 Kcl 40 Meq/D5ns IV CONT Not Given .[id number] [facility] Lorazepam 1 mg 01/09/21 02:27 01/13/21 00:57 Lorazepam Inj (*Crx) 2 Mg/Ml Vial IV PUSH 1 mg Q6H PRN Administration Restlessness, Agitation, Tremors Ondansetron HCl 4 mg 01/08/21 21:51 01/14/21 07:49 Ondansetron Inj 4 Mg/2 Ml Vial IV PUSH 4 mg Q4H PRN Administration Nausea Pantoprazole Sodium 40 mg 01/15/21 21:00 Pantoprazole 40 Mg Tablet PO Q12HR [facility] Radiology Results: ITS Impressions Abdomen/Pelvis CT 01/09/21 07:44 IMPRESSION: 1. Small bowel obstruction. 2. Small volume of ascites. Small Bowel X-Ray 01/10/21 15:03 IMPRESSION: 1: Small bowel obstruction. Abdomen X-Ray 01/11/21 06:37 IMPRESSION: 1. José Miguel
[2021-01-15] MEDS: ENALAPRILAT 1.25 MG/ML VIAL IV PUSH (12:43)
[2021-01-15] MEDS: hydrALAZINE HCL 20 MG/ML VIAL 10 MG IV PUSH (16:47)
[2021-01-15] MEDS: HYDROcodone/acetaminophen (*CRX) 5-325 MG TABLET 1 TAB PO (19:48)
[2021-01-15] MEDS: LORazepam INJ (*CRX) 2 MG/ML VIAL 1 MG IV PUSH (19:48)
[2021-01-15] MEDS: PANTOPRAZOLE 40 MG TABLET PO (19:51)
[2021-01-16] VITALS (7 sets, daily range): BP systolic 136–160; BP diastolic 87–107; PULSE 77–91; RESP 16–18; TEMP 35.7–37.5; O2SAT 94–100
[2021-01-16] MEDS: HYDROcodone/acetaminophen (*CRX) 5-325 MG TABLET 1 TAB PO ×5 (01:03→22:23)
[2021-01-16 05:38] LABS: Hematocrit 36.5 % (42.0-52.0); Mean Corpuscular HGB Conc 35.6 g/dl (32-36); Mean Corpuscular Hemoglobin 35.2 pg (26-34); Mean Corpuscular Volume 98.9 fl (80-100); Mean Platelet Volume 8.6 fl (7.4-10.4); Platelet Count Result 244 k/mm3 (150-375); Red Blood Count 3.69 M/mm3 (4.6-6.20); Red Cell Distribution Width 13.1 % (11.5-14.5); White Blood Count 3.8 K/mm3 (4.5-10.0)
[2021-01-16 05:56] LABS: Alanine Aminotransferase 13 U/L (4-50); Albumin Level 2.9 g/dL (3.5-5.1); Alkaline Phosphatase 55 U/L (38-126); Anion Gap 7 mmol/L (8-16); Aspartate Amino Transferase 31 U/L (17-59); Bilirubin,Total 0.6 mg/dL (0.2-1.3); Blood Urea Nitrogen 4 mg/dL (9-20); Calcium 8.7 mg/dL (8.4-10.2); Carbon Dioxide 26 mmol/L (22-30); Chloride 102 mmol/L (98-107); Estimated CRCL calculation 91 ml/min; Estimated Glomerular Filt Rate > 60; Glucose 95 mg/dL (65-110); Magnesium 1.7 mg/dL (1.6-2.3); Potassium 3.6 mmol/L (3.4-5.0); Sodium 135 mmol/L (137-145)
[2021-01-16] MEDS: PANTOPRAZOLE 40 MG TABLET PO ×2 (09:38→20:09)
[2021-01-16] MEDS: ENOXAPARIN 40 MG/0.4 ML SYRINGE SUB-Q (09:40)
--- NOTE | 2021-01-16 11:16 | PM.PNGS ---
Progress Note: A&P Assessment and Plan (1) Small bowel obstruction: Code(s): K56.609 - Unspecified intestinal obstruction, unspecified as to partial versus complete obstruction Status: Acute Assessment and Plan: Continues to improve. +bowel function and tolerating liquids. Will advance to a regular diet. Increase activity and ambulation. Pain well-controlled. Possible discharge tomorrow if he continues to improve. Additional Plan I have discussed the plan with Dr. Steiner. Subjective Subjective Date/Time Seen: 01/16/21 11:16 Post Op day: 4 (Ex lap with adhesiolysis) Patient reports: no new complaints, feels better, tolerating liquids well, voiding w/o difficulty, bowel movement and afebrile Interval history: Patient seen and examined today. Reports feeling well. Pain is well-controlled with oral analgesics. No nausea, vomiting, or bloating. Tolerating activity and walking the halls a few times during the day. +BM today. Review of Systems Review of Systems: All systems reviewed & are unremarkable except as noted in HPI and below Constitutional: Constitutional: Reports as per HPI, Reports no additional constitutional complaints, Denies chills and Denies fever(s) Cardiovascular: Cardiovascular: Reports no additional cardiovascular complaints, Denies chest pain, Denies leg edema and Denies dyspnea Respiratory: Respiratory: Reports no additional respiratory complaints, Denies cough and Denies dyspnea Gastrointestinal: Gastrointestinal: Reports as per HPI and Reports no additional gastrointestinal complaints Neurologic: Reports system reviewed and no additional complaints, except as documented, Denies Abnormal speech present and Denies focal weakness Exam Const: General: comfortable, no acute distress, alert and awake Orientation/consciousness: patient oriented x3 Resp: Effort & Inspection: normal respiratory effort Auscultation: clear to auscultation bilaterally Cardio: Rate: regular rate Rhythm: regular rhythm GI: Inspection: non-distended and incision (Abdominal incisions clean and dry, scant dry serosanguineous drainage) GI Palp: Yes Soft to palpation, Yes Tenderness to palpation present (GI) (incisional) and No Guarding due to palpation present (GI) Auscultation: normal bowel sounds Skin: General skin exam: normal color Neuro: General: moves all extremities and no focal motor deficits Extrem: General: no calf tenderness and edema bilateral (mild pitting 1+ in ankles) Psych: Mental Status: mental status grossly normal Insight: Good insight present (Psych) Judgement: Good judgement present (Psych) Objective Data Vital Signs Vital Signs: Vital Signs - 24 hr 01/15/21 12:00 01/15/21 14:00 01/15/21 16:00 Temperature 96.1 F L Pulse Rate 82 Pulse Rate [Left Brachial] 70 81 Respiratory Rate 20 Blood Pressure 181/99 H Pulse Oximetry 99 01/15/21 17:20 01/15/21 20:00 01/15/21 20:36 Temperature 99.2 F Pulse Rate 74 87 Pulse Rate [Left Brachial] 81 Respiratory Rate 20 Blood Pressure 153/92 H 155/88 H 155/80 H Pulse Oximetry 97 01/16/21 00:37 01/16/21 05:54 Temperature 99.4 F 97.4 F L Pulse Rate 91 77 Pulse Rate [Left Brachial] Respiratory Rate 18 16 Blood Pressure 145/93 H 143/87 H Pulse Oximetry 94 97 Intake/Output Intake/Output: Intake & Output 01/13/21 01/14/21 01/15/21 01/16/21 23:59 23:59 23:59 23:59 Intake Total 1350 2000 480 240 Output Total 5954 043 6838 Balance 0 1100 -1120 240 Meds/Results Medications: Active Medications Generic Name Dose Route Start Last Admin Trade Name Freq PRN Reason Stop Dose Admin Acetaminophen 500 mg 01/15/21 11:10 Acetaminophen 500 Mg Tablet PO Q6H PRN Mild Pain (1-3) or Fever Hydrocodone Bitart/Acetaminophen 1 tab 01/15/21 11:10 01/16/21 09:38 Hydrocodone/Acetaminophen (*Crx) 5-325 Mg Tablet PO 1 tab Q4H PRN Administration Pain Rated 4-6 Hydrocodone Bitart/Acetaminophen 1 t
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
--- NOTE | 2021-01-16 12:04 | PCNFU ---
Nutrition Follow-Up Complete: Altered GI function as related to SBO as evidenced by Clear liquids Goal: Adequate Intake of at least 75% of meals/supplements Patient is progressing towards goal. We will continue current goal. Pt current nutrition is Regular. Last recorded weight is 53.3 kg, no new weight to report. Bowel Motility:+BM 01/16 Labs Reviewed:Cr 0.6,Alb 2.9,Hct 36.5,Hgb 13.0,BUN 4 Meds Noted:Protonix,[place],Lovenox Additional Notes:Patient seen today for nutrition follow up.Tolerated a full liquid diet for breakfast. Diet orders has been advanced to a regular diet order. NGT has been removed. Monitoring: RD will monitor every 5 days.
[2021-01-16] MEDS: LORazepam INJ (*CRX) 2 MG/ML VIAL 1 MG IV PUSH (12:59)
[2021-01-16] MEDS: ENALAPRILAT 1.25 MG/ML VIAL IV PUSH ×2 (13:00→18:22)
[2021-01-16] MEDS: hydrALAZINE HCL 25 MG TABLET PO (20:09)
[2021-01-17] VITALS: BP 136/93; PULSE 78
[2021-01-17] MEDS: HYDROcodone/acetaminophen (*CRX) 5-325 MG TABLET 1 TAB PO ×3 (03:15→13:13)
[2021-01-17 06:00] VITALS: BP 147/92; PULSE 74; RESP 18; TEMP 35.6; O2SAT 99
[2021-01-17 06:09] LABS: Hematocrit 35.7 % (42.0-52.0); Hemoglobin 12.9 g/dL (14.0-18.0); Mean Corpuscular HGB Conc 36.1 g/dl (32-36); Mean Corpuscular Hemoglobin 34.7 pg (26-34); Mean Platelet Volume 8.7 fl (7.4-10.4); Platelet Count Result 292 k/mm3 (150-375); Red Blood Count 3.72 M/mm3 (4.6-6.20); White Blood Count 3.6 K/mm3 (4.5-10.0)
[2021-01-17 06:31] LABS: Alanine Aminotransferase 33 U/L (4-50); Albumin Level 2.9 g/dL (3.5-5.1); Alkaline Phosphatase 59 U/L (38-126); Anion Gap 6 mmol/L (8-16); Aspartate Amino Transferase 53 U/L (17-59); Bilirubin,Total 0.5 mg/dL (0.2-1.3); Blood Urea Nitrogen 7 mg/dL (9-20); Calcium 8.5 mg/dL (8.4-10.2); Carbon Dioxide 28 mmol/L (22-30); Chloride 100 mmol/L (98-107); Estimated CRCL calculation 79 ml/min; Estimated Glomerular Filt Rate > 60; Glucose 103 mg/dL (65-110); Magnesium 1.7 mg/dL (1.6-2.3); Potassium 3.8 mmol/L (3.4-5.0); Sodium 134 mmol/L (137-145)
[2021-01-17 09:00] VITALS: PULSE 82
[2021-01-17] MEDS: hydrALAZINE HCL 25 MG TABLET PO ×2 (09:02→13:13)
[2021-01-17] MEDS: PANTOPRAZOLE 40 MG TABLET PO (09:02)
[2021-01-17] MEDS: ENOXAPARIN 40 MG/0.4 ML SYRINGE SUB-Q (09:02)
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
[2021-01-17] MEDS: ENALAPRILAT 1.25 MG/ML VIAL IV PUSH (13:13)
[2021-01-17 14:00] VITALS: BP 139/88; PULSE 76; RESP 16; TEMP 36.1; O2SAT 99
== END 2021-01-17 15:45 | disposition home or self-care (01) | DRG 224 ==
LOC: ANHED 22:07 → ANH3MED 23:06
PROVIDERS: Family Medicine; Admitting Provider Surgery; Emergency Provider General Practice; PCP Internal Medicine; Visit Provider Nurse Practitioner Family
PROC: 0DN80ZZ Release Small Intestine, Open Approach (ICD-10-PCS; CPT 49000; principal; 2021-01-12 11:00)
DX: K56.52 Intestinal adhesions [bands] with complete obstruction (principal); F10.10 Alcohol abuse, uncomplicated; I10 Essential (primary) hypertension; F17.210 Nicotine dependence, cigarettes, uncomplicated; K56.7 Ileus, unspecified
CPT/HCPCS: 36415; 74018; 74177; 74250; 80053; 81001; 83690; 83735; 85025; 85027; 87086; 96361; 96365; 96374; 96375; 96376; 97110; 97116; 97161; 97165; 97530; 97535; 99285; A9270; C9113; G0378; G0379; J0131; J0330; J0360; J0690; J1100; J1170; J1650; J2060; J2250; J2270; J2405; J2543; J2550; J2704; J2710; J3010; J3480; J7030; J7120; Q9967

== ENCOUNTER 2021-09-08 07:47 | Emergency (ER) | payer OTHER, SELFPAY ==
[2021-09-08 07:50] VITALS: BP 124/91; PULSE 67; RESP 18; TEMP 36.6; O2SAT 100
--- NOTE | 2021-09-08 09:14 | ED.LOWEXIN ---
HPI - Extremity Injury (Lower) General Chief Complaint: Extremity Injury, Lower Stated Complaint: L toe swelling Time Seen by Provider: 09/08/21 09:04 Source: patient Mode of arrival: ambulatory Limitations: no limitations History of Present Illness HPI Narrative: 54-year-old male presents today with complaints of pain and redness to left second toe that started about a day after he cut the corn off of it. Patient states he thinks he cut the corn too short. Redness and warmth noted to toe. Patient denies fevers, body aches, chills, but does endorse pain to left second toe. Patient denies history of diabetes. Related Data Home Medications Medication Instructions Recorded Confirmed pantoprazole 40 mg PO BID 01/08/21 01/25/21 gabapentin 09/08/21 09/08/21 tizanidine mg 09/08/21 Allergies Allergy/AdvReac Type Severity Reaction Status Date / Time No Known Allergies Allergy Verified 09/08/21 07:54 Review of Systems Review of Systems: CONSTITUTIONAL: Denies fever, chills, or sweats. EYES: Denies visual changes, redness, or discharge. ENT: Denies rhinorrhea, congestion, sore throat, or otalgia. CARDIOVASCULAR: Denies chest pain, palpitations, or edema. RESPIRATORY: Denies cough or dyspnea. GASTROINTESTINAL: Denies abdominal pain, nausea, vomiting, or diarrhea. GENITOURINARY: Denies dysuria or hematuria. SKIN: Left second toe redness, pain, and warmth. Denies rash or itching. MUSCULOSKELETAL: Denies back pain, joint pain, or myalgia. NEUROLOGIC: Denies headache, numbness, dizziness, or weakness. PSYCHIATRIC: Denies anxiety or depression. [facility] Past Medical History Medical History ETOH abuse Small bowel obstruction Smoker Surgical History Surgical History S/P exploratory laparotomy exploratory laparotomy with lysis of adhesions of approximately 15 minutes Social History Social History Smoking packs per day: 1 Smoking cigarettes per day: 20.0 Years smoked: 30 Smoking pack-years: 30.00 Smoking status: Current every day smoker Tobacco type: cigarettes Alcohol intake: current Drinks per week: 20 Substance use type: marijuana Spiritual care concerns: No Exam Narrative: GENERAL: Well-appearing, well-nourished, and in no acute distress. HEAD: Normocephalic, atraumatic. EYES: PERRLA and EOMI. NECK: Supple. No adenopathy or masses. No carotid bruits or JVD CHEST: Clear to auscultation. No respiratory distress. No wheezes rales or rhonchi HEART: Regular rate and rhythm. No murmur heard. Normal peripheral pulses. EXTREMITIES: Normal range of motion. No edema. SKIN: Left second toe with yellow area where patient cut corn off. Serous drainage at current time. Toe is red and warm to touch. Tenderness upon palpation.. NEURO: No focal deficits. Alert and oriented x3. PSYCH: Normal mood and affect. Course Vital Signs Vital signs: Vital Signs Temperature 36.6 C 09/08/21 07:50 Pulse Rate 67 09/08/21 07:50 Respiratory Rate 18 09/08/21 07:50 Blood Pressure 124/91 H 09/08/21 07:50 Pulse Oximetry 100 09/08/21 07:50 Temperature 36.6 C 09/08/21 07:50 Pulse Rate 60 09/08/21 09:48 Respiratory Rate 16 09/08/21 09:48 Blood Pressure 145/93 H 09/08/21 09:48 Pulse Oximetry 100 09/08/21 09:48 MDM - Extremity Injury (Lower) Differential Diagnosis Differential diagnosis: Likely other (Cellulitis, abscess,) Medical Records Attestation: I reviewed the patient's medical records. Discharge Plan Discharge Clinical Impression: Cellulitis Qualifiers: Site of cellulitis: extremity Site of cellulitis of extremity: lower extremity Laterality: left Qualified Code(s): L03.116 - Cellulitis of left lower limb Patient Disposition: Home, Self-Care Condition: Stable Instructions: Antibiotic Form Additional Instructions: Take antibiotics as prescrib
[2021-09-08 09:48] VITALS: BP 145/93; PULSE 60; RESP 16; O2SAT 100
== END 2021-09-08 09:47 | disposition home or self-care (01) ==
PROVIDERS: Emergency Provider Nurse Practitioner Family; PCP Internal Medicine
DX: L03.116 Cellulitis of left lower limb (principal); F17.210 Nicotine dependence, cigarettes, uncomplicated
CPT/HCPCS: 99283